=== PATIENT | female | born 1955 | race Caucasian/White ===

== ENCOUNTER → 2016-12-31 | Outpatient (CLI) | payer BC | END | disposition home or self-care (01) | LOC: RES 12-17 10:00 | DX: J98.8 Other specified respiratory disorders (principal) | CPT/HCPCS: 94060; 94726; 94729 ==

== ENCOUNTER 2017-05-11 16:51 | Emergency (ER) | payer BC ==
[~2017-05-11] VITALS: Ht 162.6 cm; Wt 90.9 kg
[2017-05-11 17:30] LABS: HEMATOCRIT 40.6 % (36.0-46.0); HEMOGLOBIN 13.4 G/DL (11.9-15.5); MCH 29.1 PG (29.0-34.0); MCV 88.3 FL (83-99); PLATELET COUNT 363 K/uL (156-360); RBC DIS.WIDTH-SD 38.5 % (39-53); WHITE BLOOD COUNT 7.3 K/uL (4.1-10.2)
[2017-05-11 17:38] LABS: ALBUMIN 4.3 g/dL (3.2-4.8); CHLORIDE 105 mEq/L (99-109); POTASSIUM 3.9 mEq/L (3.7-5.4); SODIUM 139 mEq/L (136-147)
[2017-05-11 17:40] LABS: GLUCOSE 88 mg/dL (70-99)
[2017-05-11 17:41] LABS: TOTAL PROTEIN 7.8 g/dL (6.4-8.3)
[2017-05-11 17:42] LABS: TOTAL BILIRUBIN 0.3 mg/dL (0.0-1.0)
[2017-05-11 17:44] LABS: ALKALINE PHOSPHATASE 60 IU/L (3-129); GFR ESTIMATE (CALCULATED) > 59 mL/min/
[2017-05-11 17:45] LABS: UREA NITROGEN (BUN) 18 mg/dL (9-23)
[2017-05-11 17:46] LABS: AST (GOT) 26 IU/L (2-34)
[2017-05-11 17:47] LABS: ALT (GPT) 36 IU/L (3-49)
[2017-05-11] MEDS ORDERED: IMITREX25 MG PO (20:03)
[2017-05-11] MEDS ORDERED: REGLAN10 MG PO (20:03)
[2017-05-11 20:16] VITALS: BP 115/57
== END 2017-05-11 20:17 | disposition home or self-care (01) ==
LOC: EME 16:51
PROVIDERS: Emergency Medicine
DX: G43.909 Migraine, unspecified, not intractable, without status migrainosus (principal); Z87.891 Personal history of nicotine dependence
CPT/HCPCS: 70450; 80053; 85027; 99281; 99284; J2765; J3030; J7050

== ENCOUNTER 2017-11-08 18:05 | Emergency (ER) | payer BC ==
[~2017-11-08] VITALS: Ht 162.6 cm; Wt 81.9 kg
[~2017-11-08 18:05] MED LIST: IMITREX25 MG PO; REGLAN10 MG PO
[2017-11-08 19:06] LABS: BASOPHIL (%) 1.4 % (0-1); BASOPHIL COUNT 0.1 K/uL (0-0.1); EOSINOPHIL (%) 1.5 % (0-5); EOSINOPHIL COUNT 0.1 K/uL (0-0.3); HEMATOCRIT 41.2 % (36.0-46.0); HEMOGLOBIN 14.1 G/DL (11.9-15.5); IMMATURE GRANULOCYTE (%) 0.3 % (0.0-0.7); LYMPHOCYTE (%) 29.2 % (15-42); LYMPHOCYTE COUNT 2.3 K/uL (1.0-2.8); MCH 29.9 PG (29.0-34.0); MCHC 34.2 G/DL (30.0-36.0); MCV 87.3 FL (83-99); MONOCYTE COUNT 0.8 K/uL (0-0.8); NEUTROPHIL (%) 57.6 % (45-76); NEUTROPHIL COUNT 4.6 K/uL (1.8-6.4); PLATELET COUNT 375 K/uL (156-360); RBC DIS.WIDTH-CV 12.4 % (11.8-14.6); RBC DIS.WIDTH-SD 39.9 % (39-53); RED BLOOD COUNT 4.72 M/uL (3.80-5.20); WHITE BLOOD COUNT 7.9 K/uL (4.1-10.2)
[2017-11-08 19:10] LABS: APPEARANCE CLEAR ((CLEAR)); BILIRUBIN NEGATIVE; BLOOD NEGATIVE; COLOR YELLOW ((YELLOW)); GLUCOSE (STRIP) NEGATIVE; KETONES NEGATIVE; LEUKOCYTES NEGATIVE; NITRITE NEGATIVE; PROTEIN (STRIP) NEGATIVE; SPECIFIC GRAVITY 1.041 (1.000-1.030); UROBILINOGEN 0.2 MG/DL (0.2-1.0)
[2017-11-08 19:14] LABS: ALBUMIN 4.8 g/dL (3.2-4.8); CHLORIDE 102 mEq/L (99-109); POTASSIUM 3.9 mEq/L (3.7-5.4); SODIUM 138 mEq/L (136-147)
[2017-11-08 19:17] LABS: GLUCOSE 95 mg/dL (70-99); TOTAL PROTEIN 7.9 g/dL (6.4-8.3)
[2017-11-08 19:19] LABS: TOTAL BILIRUBIN 0.4 mg/dL (0.0-1.0)
[2017-11-08 19:20] LABS: ALKALINE PHOSPHATASE 47 IU/L (3-129)
[2017-11-08 19:21] LABS: CREATININE 0.9 mg/dL (0.6-1.3); GFR ESTIMATE (CALCULATED) > 59 mL/min/
[2017-11-08 19:22] LABS: AST (GOT) 29 IU/L (2-34); DIRECT BILIRUBIN 0.2 mg/dL (0.0-0.3); UREA NITROGEN (BUN) 14 mg/dL (9-23)
[2017-11-08 19:23] LABS: ALT (GPT) 51 IU/L (3-49)
[2017-11-08 19:24] LABS: LIPASE 18 U/L (1.0-51.0)
[2017-11-08] MEDS ORDERED: ZOFRAN ODT8 MG PO (22:18)
[2017-11-08] MEDS ORDERED: BENTYL20 MG PO (22:18)
[2017-11-08 23:28] VITALS: BP 117/50
== END 2017-11-08 23:29 | disposition home or self-care (01) ==
LOC: EME 18:05
PROVIDERS: Physician Assistant
DX: R10.9 Unspecified abdominal pain (principal); R11.2 Nausea with vomiting, unspecified; M54.9 Dorsalgia, unspecified; E86.0 Dehydration; R19.5 Other fecal abnormalities; K76.0 Fatty (change of) liver, not elsewhere classified; Z87.891 Personal history of nicotine dependence
CPT/HCPCS: 76705; 80048; 80076; 81003; 83605; 83690; 85025; 93005; 99281; 99285; J0500; J1885; J2405; J2765; J3010; J7030

== ENCOUNTER 2017-11-11 05:35 | Emergency (ER) | payer BC ==
[~2017-11-11] VITALS: Ht 165.1 cm; Wt 83.0 kg
[~2017-11-11 05:35] MED LIST changes: +BENTYL20 MG PO; +ZOFRAN ODT8 MG PO
[2017-11-11 07:19] LABS: HEMATOCRIT 36.4 % (36.0-46.0); HEMOGLOBIN 12.4 G/DL (11.9-15.5); MCH 29.9 PG (29.0-34.0); MCHC 34.1 G/DL (30.0-36.0); MCV 87.7 FL (83-99); PLATELET COUNT 315 K/uL (156-360); RBC DIS.WIDTH-CV 12.4 % (11.8-14.6); RBC DIS.WIDTH-SD 39.8 % (39-53); RED BLOOD COUNT 4.15 M/uL (3.80-5.20)
[2017-11-11 07:39] LABS: APPEARANCE CLEAR ((CLEAR)); BILIRUBIN NEGATIVE; BLOOD NEGATIVE; COLOR STRAW ((YELLOW)); GLUCOSE (STRIP) NEGATIVE; KETONES NEGATIVE; LEUKOCYTES NEGATIVE; NITRITE NEGATIVE; PROTEIN (STRIP) NEGATIVE; SPECIFIC GRAVITY 1.011 (1.000-1.030); UROBILINOGEN 0.2 MG/DL (0.2-1.0)
[2017-11-11 07:59] LABS: ALBUMIN 4.4 G/DL (3.2-4.8); ALKALINE PHOSPHATASE 36 IU/L (3-129); ALT (GPT) 34 IU/L (3-49); AST (GOT) 24 IU/L (2-34); CHLORIDE 105 MEQ/L (99-109); CREATININE 0.8 MG/DL (0.6-1.3); GFR ESTIMATE (CALCULATED) > 59 mL/min/; GLUCOSE 128 mg/dL (70-99); POTASSIUM 4.1 MEQ/L (3.7-5.4); SODIUM 141 MEQ/L (136-147); TOTAL BILIRUBIN 0.3 MG/DL (0.0-1.0); TOTAL PROTEIN 6.6 G/DL (6.4-8.3); UREA NITROGEN (BUN) 19 mg/dL (9-23)
[2017-11-11] MEDS ORDERED: PERCOCET 5/31 TABLET PO (10:29)
[2017-11-11 10:57] VITALS: BP 130/57
== END 2017-11-11 11:00 | disposition home or self-care (01) ==
LOC: EME 05:35
PROVIDERS: Emergency Medicine
DX: R10.31 Right lower quadrant pain (principal); R11.0 Nausea; E78.5 Hyperlipidemia, unspecified; I10 Essential (primary) hypertension; R73.03 Prediabetes; Z87.891 Personal history of nicotine dependence; Z90.710 Acquired absence of both cervix and uterus
CPT/HCPCS: 76856; 80053; 81003; 85027; 86140; 99281; 99284